=== PATIENT | female | born 2005 | race Caucasian/White ===

== ENCOUNTER 2024-02-19 16:51 | Emergency (ER) | payer SELFPAY ==
[~2024-02-19] VITALS: Ht 167.6 cm; Wt 60.0 kg
[2024-02-19 16:55] VITALS: BP 114/44; PULSE 68; RESP 18; TEMP 98.6; O2SAT 99
[2024-02-19] MEDS: IBUPROFEN 600MG TABLET PO ONE (18:44)
[2024-02-19] MEDS: TETANUS, DIPHTHERIA, PERTUSSIS VAC/PF 0.5ML (>10YR OLD) IM ONE (18:44)
[2024-02-19] MEDS ORDERED: IBUP-2029 MT (19:46)
[2024-02-19] MEDS ORDERED: BO1 TP (19:46)
[2024-02-19] MEDS ORDERED: CHLO473M2 MT (19:46)
== END 2024-02-19 20:40 | disposition home or self-care (01) ==
LOC: ER 16:51
DX: S00.83XA Contusion of other part of head, initial encounter (principal); S00.511A Abrasion of lip, initial encounter; V78.4XXA Person boarding or alighting from bus injured in noncollision transport accident, initial encounter; Y93.89 Activity, other specified; Y92.89 Other specified places as the place of occurrence of the external cause; Y99.8 Other external cause status
CPT/HCPCS: 81025; 70486; 90715; 90471; 99285; Z7610